=== PATIENT | male | born 1990 | race Caucasian/White ===

== ENCOUNTER 2016-05-25 18:57 | Inpatient (IN) | payer BC, OTHER ==
[2016-05-25] MEDS ORDERED: SODIUM CHLORIDE 0.9% 1,000 ML IV ONE (21:16)
[2016-05-25] MEDS ORDERED: HYDROmorphone 1 MG/ML 1 ML SYRINGE IVP STA ×2 (21:16→22:13)
[2016-05-25] MEDS ORDERED: IBUPROFEN 400 MG TAB PO STA (21:18)
--- NOTE | 2016-05-25 21:22 | ED ---
General Adult HPI - General Source: patient, RN notes reviewed Mode of arrival: ambulatory Limitations: no limitations <Adri Lai - Last Filed: 05/26/16 04:24> <Jr Reed - Last Filed: 06/06/16 08:43> - General Chief complaint: Abdominal Pain Stated complaint: LR ABDOMINAL PAIN, JUST ABOVE GROIN Time Seen by Provider: 05/25/16 21:01 - History of Present Illness Initial comments: This is a 26-year-old male who presents with right lower quadrant pain since Monday. Patient states this pain started right after he ate a burrito for lunch. Patient denies any fever/chills, nausea/vomiting/diarrhea. Patient denies any hematuria, hematochezia, or constipation. Patient has been taking a daily ibuprofen for pain but this has not helped. Patient states the abdominal pain is constant. Patient denies any dysuria. Patient denies any past surgeries. Patient states the pain does not radiate anywhere. Patient denies any recent shortness breath, chest pain, back pain, numbness, tingling, hematuria, headache, or visual changes, or any other complaints. (Adri Lai) - Related Data Previous Rx's Medication Instructions Recorded HYDROcodone/APAP 5-325MG [[place] 1 - 2 tab PO Q4H PRN #30 tab 05/26/16 5-325] Allergies Allergy/AdvReac Type Severity Reaction Status Date / Time No Known Allergies Allergy Verified 05/25/16 21:02 Review of Systems ROS Other: All systems not noted in ROS Statement are negative. <Adri Lai - Last Filed: 05/26/16 04:24> ROS Other: All systems not noted in ROS Statement are negative. <Jr Reed - Last Filed: 06/06/16 08:43> ROS Statement: Those systems with pertinent positive or pertinent negative responses have been documented in the HPI. Past Medical History Additional Past Medical History / Comment(s): chronic shoulder pain History of Any Multi-Drug Resistant Organisms: None Reported Past Surgical History: No Surgical Hx Reported Past Psychological History: No Psychological Hx Reported Smoking Status: Current every day smoker Past Alcohol Use History: None Reported Past Drug Use History: None Reported - Past Family History Father Family Medical History: Hypertension Mother Family Medical History: Hypertension Additional Family Medical History / Comment(s): Hernia <Adri Lai - Last Filed: 05/26/16 04:24> General Exam Limitations: no limitations <Adri Lai - Last Filed: 05/26/16 04:24> <Jr Reed - Last Filed: 06/06/16 08:43> - General Exam Comments Initial Comments: General: The patient is awake and alert, in no distress, and does not appear acutely ill. Eye: Pupils are equal, round and reactive to light, extra-ocular movements are intact. No nystagmus. There is normal conjunctiva bilaterally. No signs of icterus. Ears: TMs pink and pearly with intact cone of light bilaterally. Normal external ear canals Nose: Nasal turbinates pink and moist Mouth and throat: There are moist mucous membranes and no oral lesions. Neck: The neck is supple, there is no tenderness or JVD. Cardiovascular: There is a regular rate and rhythm. No murmur, rub or gallop is appreciated. Respiratory: Lungs are clear to auscultation, respirations are non-labored, breath sounds are equal. No wheezes, stridor, rales, or rhonchi. Gastrointestinal: There is tenderness to palpation of the right lower quadrant with voluntary guarding present. Soft, non-distended abdomen without masses or organomegaly noted. There is no rebound or involuntary guarding present. Negative Rovsing's. No CVA tenderness. Bowel sounds are unremarkable. Musculoskeletal: Normal ROM, no tenderness. Strength 5/5. Sensation intact. Radial pulses equal bilaterally 2+. Neurological: A&O x 3. CN II-XII intact, There are no obvious motor or sensory deficits. Coordination appears grossly intact. Speech is normal. Skin: Skin is warm and dry and no rashes or lesions are noted. Psychiatric: Cooperative, appropriate mood & affect, normal judgment. (Adri Lai) Medical Decision Making - Lab Data Result diagrams: 05/25/16 21:35 05/25/16 21:35 <Adri aLi - Last Filed: 05/26/16 04:24> - Lab Data Result diagrams: 05/27/16 07:14 05/27/16 07:14 <Jr Reed - Last Filed: 06/06/16 08:43> - Medical Decision Making This is a 18-year-old male presents to right lower quadrant pain since Monday. On physical exam patient has a fever in the EC. There is tenderness to palpation of the right lower quadrant with voluntary guarding present. Soft, non-distended abdomen without masses or organomegaly noted. There is no rebound or involuntary guarding present. Negative Rovsing's. No CVA tenderness. Bowel sounds are unremarkable. Basic labs were drawn. Patient was given Dilaudid in the EC. A CT of the abdomen was done with contrast and reviewed showing: There are inflammatory changes at the tip of the cecum consistent with acute appendicitis. No abscess seen. Thickened appendix. Splenomegaly. 2 cm low density lesion in the lateral right kidney is nonspecific. Ultrasound would be helpful for further evaluation this could relate to focal pyelonephritis. Report by Dr. Wright. I discussed the results with patient and attending physician Dr. Reed. At this time Dr. Chiu will be consulted regarding patient admission. Patient was started on IV Unasyn with an NPO diet and will be admitted as an inpatient. (Adri Lai) I saw this patient in conjunction with the physician nutrition services assistant. I performed independent history and physical exam. Agree with case management. (Jr Reed) - Lab Data Lab Results 05/25/16 05/25/16 05/25/16 Range/Units 21:35 21:35 21:35 WBC 9.5 (3.8-10.6) k/uL RBC 5.31 (4.30-5.90) m/uL Hgb 16.4 (13.0-17.5) gm/dL Hct 46.1 (39.0-53.0) % MCV 86.8 (80.0-100.0) fL MCH 31.0 (25.0-35.0) pg MCHC 35.7 (31.0-37.0) g/dL RDW 13.7 (11.5-15.5) % Plt Count 181 (150-450) k/uL Neutrophils % 70 % Lymphocytes % 18 % Monocytes % 5 % Eosinophils % 3 % Basophils % 1 % Neutrophils # 6.7 (1.3-7.7) k/uL Lymphocytes # 1.7 (1.0-4.8) k/uL Monocytes # 0.5 (0-1.0) k/uL Eosinophils # 0.3 (0-0.7) k/uL Basophils # 0.1 (0-0.2) k/uL Hyperchromasia Slight Poikilocytosis Slight PT (9.0-12.0) sec INR (<1.1) APTT (22.0-30.0) sec Sodium 139 (137-145) mmol/L Potassium 4.1 (3.5-5.1) mmol/L Chloride 103 (98-107) mmol/L Carbon Dioxide 28 (22-30) mmol/L Anion Gap 8 mmol/L BUN 15 (9-20) mg/dL Creatinine 1.07 (0.66-1.25) mg/dL Est GFR (MDRD) Af Amer >60 (>60 ml/min/1.73 sqM) Est GFR (MDRD) Non-Af >60 (>60 ml/min/1.73 sqM) Glucose 90 (74-99) mg/dL Plasma Lactic Acid Femi 0.7 (0.7-2.0) mmol/L Calcium 9.3 (8.4-10.2) mg/dL Total Bilirubin 1.3 (0.2-1.3) mg/dL AST 22 (17-59) U/L ALT 34 (21-72) U/L Alkaline Phosphatase 53 (38-126) U/L Total Protein 6.6 (6.3-8.2) g/dL Albumin 4.2 (3.5-5.0) g/dL Amylase 38 (30-110) U/L Lipase 24 (23-300) U/L Urine Color Urine Appearance (Clear) Urine pH (5.0-8.0) Ur Specific [place] (1.001-1.035) Urine Protein (Negative) Urine Glucose (UA) (Negative) Urine Ketones (Negative) Urine Blood (Negative) Urine Nitrate (Negative) Urine Bilirubin (Negative) Urine Urobilinogen (<2.0) mg/dL Ur Leukocyte Esterase (Negative) 05/25/16 05/25/16 Range/Units 21:35 23:00 WBC (3.8-10.6) k/uL RBC (4.30-5.90) m/uL Hgb (13.0-17.5) gm/dL Hct (39.0-53.0) % MCV (80.0-100.0) fL MCH (25.0-35.0) pg MCHC (31.0-37.0) g/dL RDW (11.5-15.5) % Plt Count (150-450) k/uL Neutrophils % % Lymphocytes % % Monocytes % % Eosinophils % % Basophils % % Neutrophils # (1.3-7.7) k/uL Lymphocytes # (1.0-4.8) k/uL Monocytes # (0-1.0) k/uL Eosinophils # (0-0.7) k/uL Basophils # (0-0.2) k/uL Hyperchromasia Poikilocytosis PT 10.4 (9.0-12.0) sec INR 1.0 (<1.1) APTT 26.1 (22.0-30.0) sec Sodium (137-145) mmol/L Potassium (3.5-5.1) mmol/L Chloride (98-107) mmol/L Carbon Dioxide (22-30) mmol/L Anion Gap mmol/L BUN (9-20) mg/dL Creatinine (0.66-1.25) mg/dL Est GFR (MDRD) Af Amer (>60 ml/min/1.73 sqM) Est GFR (MDRD) Non-Af (>60 ml/min/1.73 sqM) Glucose (74-99) mg/dL Plasma Lactic Acid Femi (0.7-2.0) mmol/L Calcium (8.4-10.2) mg/dL Total Bilirubin (0.2-1.3) mg/dL AST (17-59) U/L ALT (21-72) U/L Alkaline Phosphatase (38-126) U/L Total Protein (6.3-8.2) g/dL Albumin (3.5-5.0) g/dL Amylase (30-110) U/L Lipase (23-300) U/L Urine Color Yellow Urine Appearance Clear (Clear) Urine pH 6.5 (5.0-8.0) Ur Specific [place] >1.050 H (1.001-1.035) Urine Protein Trace H (Negative) Urine Glucose (UA) Negative (Negative) Urine Ketones Negative (Negative) Urine Blood Negative (Negative) Urine Nitrate Negative (Negative) Urine Bilirubin Negative (Negative) Urine Urobilinogen <2.0 (<2.0) mg/dL Ur Leukocyte Esterase Negative (Negative) Disposition Decision Time: 00:17 <Adri Lai - Last Filed: 05/26/16 04:24> <Jr Reed - Last Filed: 06/06/16 08:43> Clinical Impression: Appendicitis Disposition: ADMITTED IP TO THIS HOSP Condition: Good
[2016-05-25 21:56] LABS: Basophils # (A) 0.1 k/uL (0-0.2); Basophils % (A) 1 %; CH 31.9; Eosinophils # (A) 0.3 k/uL (0-0.7); Eosinophils % (A) 3 %; HCT 46.1 % (39.0-53.0); HDW 3.64; HGB 16.4 gm/dL (13.0-17.5); Hyperchromasia Slight; Luc # (Auto) 0.25; Luc % (Auto) 3; Lymphocytes # (A) 1.7 k/uL (1.0-4.8); Lymphocytes % (A) 18 %; MCHC 35.7 g/dL (31.0-37.0); MCV 86.8 fL (80.0-100.0); Monocytes # (A) 0.5 k/uL (0-1.0); Monocytes % (A) 5 %; Neutrophils # (A) 6.7 k/uL (1.3-7.7); Neutrophils % (A) 70 %; Poikilocytosis Slight; RBC 5.31 m/uL (4.30-5.90); RDW 13.7 % (11.5-15.5); WBC 9.5 k/uL (3.8-10.6); WBC (Perox) 10.17
[2016-05-25 22:02] LABS: Partial Thromboplastin Time 26.1 sec (22.0-30.0); Prothrombin Time 10.4 sec (9.0-12.0)
[2016-05-25 22:03] LABS: ALT 34 U/L (21-72); AST 22 U/L (17-59); Alkaline Phosphatase 53 U/L (38-126); Amylase 38 U/L (30-110); Anion Gap 8 mmol/L; Blood Urea Nitrogen 15 mg/dL (9-20); Calcium 9.3 mg/dL (8.4-10.2); Carbon Dioxide 28 mmol/L (22-30); Chloride 103 mmol/L (98-107); Glucose 90 mg/dL (74-99); Non-African American GFR(MDRD) >60 (>60 ml/min/1.73 sqM); Potassium 4.1 mmol/L (3.5-5.1); Sodium 139 mmol/L (137-145); Total Bilirubin 1.3 mg/dL (0.2-1.3); Total Protein 6.6 g/dL (6.3-8.2)
[2016-05-25] MEDS ORDERED: RX INFO: IV CONTRAST WAS GIVEN 1 EACH MISC MISCELLANE PRN (22:10)
--- NOTE | 2016-05-25 22:58 | CT ---
EXAMINATION TYPE: CT abdomen pelvis w con DATE OF EXAM: 05/25/2016 10:38 PM COMPARISON: NONE HISTORY: Right Lower Quadrant pain with fever CT DLP: 1591.8 mGycm Automated exposure control for dose reduction was used. TECHNIQUE: Helical acquisition of images was performed from the lung bases through the pelvis. CONTRAST: Performed without Oral Contrast and with IV Contrast, patient injected with 100 mL of Omnipaque 300. FINDINGS: Lung bases are clear. There is no pleural effusion. Heart size is normal. Liver appears normal. Bile ducts are not dilated. Gallbladder and pancreas appear normal. Spleen is e nlarged and measures 18 x 10 cm. There is no retroperitoneal adenopathy. There is no adrenal mass. Kidneys have normal size and contour. There is no hydronephrosis. There is a 2 cm low-density rounded area on the lateral right kidney. There is no ascites. There are inflammatory changes at the inferior aspect of the cecum. There is fat stranding. There prosper ears to be a thickened appendix that measures 1.3 cm. Bladder distends smoothly. There is no sign of a pelvic mass. IMPRESSION: THERE ARE INFLAMMATORY CHANGES AT THE TIP OF THE CECUM CONSISTENT WITH ACUTE APPENDICITIS. NO ABSCESS SEEN. THICKENED APPENDIX. SPLENOMEGALY. 2 CM ROUNDED LOW-DENSITY LESION IN THE LATERAL RIGHT KIDNEY IS NONSPECIFIC. ULTRASOUND WOULD BE HELPF UL FOR FURTHER EVALUATION. THIS COULD RELATE TO FOCAL PYELONEPHRITIS
[2016-05-25] MEDS ORDERED: AMPICILLIN-SULBACTAM 1.5 GM in SODIUM CHLORIDE 0.9% 50 ML IVPB STA (23:25)
[2016-05-25 23:55] LABS: Appearance,Urine Clear (Clear); Bilirubin,Urine Negative (Negative); Glucose,Urine (UA) Negative (Negative); Ketones,Urine Negative (Negative); Leukocyte Esterase,Urine Negative (Negative); Nitrite,Urine Negative (Negative); PH, Urine 6.5 (5.0-8.0); Protein,Urine Trace (Negative); UA Billing (MACRO vs. MICRO) CHEM; Urobilinogen,Urine <2.0 mg/dL (<2.0)
[2016-05-26] MEDS ORDERED: IBUPROFEN 400 MG TAB PO PRN (00:12)
[2016-05-26] MEDS ORDERED: ONDANSETRON 4 MG/2 ML VIAL IVP PRN (00:12)
[2016-05-26] MEDS ORDERED: NALOXONE 0.4 MG/ML 1 ML VIAL IV PRN ×2 (00:12→10:37)
[2016-05-26] MEDS ORDERED: ACETAMINOPHEN TAB 325 MG TAB PO PRN (00:12)
[2016-05-26 00:52] LABS: Specific Gravity,Urine >1.050 (1.001-1.035)
[2016-05-26 01:00] VITALS: BMI 33.3
[2016-05-26] MEDS: HYDROcodone/APAP 5-325MG 1 EACH TAB PO PRN ×4 (01:09→19:55)
[2016-05-26] MEDS ORDERED: AMPICILLIN-SULBACTAM 1.5 GM in SODIUM CHLORIDE 0.9% 50 ML IVPB SCH ×2 (06:00→12:00)
--- NOTE | 2016-05-26 08:42 | P.GSHP ---
History of Present Illness H&P Date: 05/26/16 Chief Complaint: abdominal pain The patient presented to the emergency department with pain. It and starting Monday get progressively worse. He came into the emergency department and showed evidence of appendicitis. - Review of Systems All systems: negative Past Medical History Additional Past Medical History / Comment(s): chronic shoulder pain History of Any Multi-Drug Resistant Organisms: None Reported Past Surgical History: No Surgical Hx Reported Past Psychological History: No Psychological Hx Reported Smoking Status: Current every day smoker Past Alcohol Use History: None Reported Past Drug Use History: None Reported - Past Family History Father Family Medical History: Hypertension Mother Family Medical History: Hypertension Additional Family Medical History / Comment(s): Hernia Medications and Allergies Home Medications Medication Instructions Recorded Confirmed Type No Known Home Medications [No 05/25/16 05/25/16 History Known Home Medications] Allergies Allergy/AdvReac Type Severity Reaction Status Date / Time No Known Allergies Allergy Verified 05/25/16 21:02 Surgical - Exam Osteopathic Statement: *. No significant issues noted on an osteopathic structural exam other than those noted in the History and Physical/Consult. Vital Signs Temp Pulse Resp BP Pulse Ox 98.2 F 86 16 125/82 100 05/25/16 19:31 05/25/16 19:31 05/25/16 19:31 05/25/16 19:31 05/25/16 19:31 - General well developed, well nourished, no distress - Eyes normal ocular movement - ENT no hearing loss, no congestion - Neck trachea midline - Respiratory normal respiratory effort - Abdomen Abdomen: tender (Right lower quadrant) Results - Labs 05/25/16 21:35 05/25/16 21:35 - Imaging CT scan - abdomen: report reviewed, image reviewed Assessment and Plan (1) Appendicitis Status: Acute Plan: Plan is laparoscopic appendectomy possible open. The procedure risk and complications were discussed. Questions were encouraged and answered. I'll do that for him today. Usual postop course was discussed.
[2016-05-26] MEDS ORDERED: IV FLUID CONTINUATION 900 ML IV ONE (09:00)
[2016-05-26] MEDS ORDERED: PROPOFOL 10 MG/ML 20 ML VIAL IV ONE (09:37)
[2016-05-26] MEDS ORDERED: MIDAZOLAM 2 MG/2 ML VIAL ONE (09:37)
[2016-05-26] MEDS ORDERED: NEOSTIGMINE 1 MG/ML 10 ML VIAL ONE (09:37)
[2016-05-26] MEDS ORDERED: GLYCOPYRROLATE 0.2 MG/ML 2 ML VIAL ONE (09:37)
[2016-05-26] MEDS ORDERED: VECURONIUM 10 MG VIAL IV ONE (09:37)
[2016-05-26] MEDS ORDERED: LIDOCAINE 1% INJ 10MG/ML (20 ML MDV) ONE (09:37)
[2016-05-26] MEDS ORDERED: SUCCINYLCHOLINE CHLORIDE VIAL 200 MG/10 ML VIAL IV ONE (09:37)
[2016-05-26] MEDS ORDERED: HYDROmorphone (PF) 1 MG/ML ONE (09:37)
[2016-05-26] MEDS ORDERED: fentaNYL (PF) 50 MCG/ML 2 ML AMP ONE (09:37)
[2016-05-26] MEDS: ERTAPENEM 1 GM in SODIUM CHLORIDE 0.9% 50 ML IVPB SCH (09:45)
[2016-05-26] MEDS ORDERED: BUPIVACAIN-EPI 0.25%-1:200,000 30 ML VIAL SQ ONE ×2 (10:02)
--- NOTE | 2016-05-26 10:37 | P.OP ---
Date of Procedure: 05/26/16 Preoperative Diagnosis: Appendicitis Postoperative Diagnosis: Appendicitis Procedure(s) Performed: Laparoscopic appendectomy Anesthesia: REN Surgeon: Liz Chiu Estimated Blood Loss (ml): 5 Pathology: other (Appendix) Condition: stable Disposition: PACU Indications for Procedure: Patient presented with abdominal pain. Workup showed acute appendicitis Operative Findings: The patient's taken the operative suite where as prepped and draped in the usual sterile manner under general endotracheal anesthetic. An infraumbilical incision was made. A varies needle was placed in the abdominal cavity and hanging drop test was performed. Pneumoperitoneum was started however the pressures were high. Elmo withdrawn and attempted to be repositioned. It still showed a good pain drop test but wasn't insufflating appropriately. Therefore the various was removed. A small fascial incision was made. The peritoneum was grasped and incised. A finger sweep was carried out. The trocar was then inserted and pneumoperitoneum was established with CO2 gas. There is evidence of some pre-peritoneal emphysema but no evidence of any bleeding or injury to the underlying bowel. Sites are chosen for accessory trochars needs are placed through small skin incisions. The abdominal pelvic contents were examined. The appendix was grasped and retracted medially. It was dissected off the sidewall. The mesoappendix was then taken down with harmonic scissors to the base. The appendix was then ligated with 0 PDS Endoloops 2. The appendix was then transected and placed into a specimen retrieval bag. The appendiceal stump and mesentery were examined and noted to be hemostatic. The trochars are removed. The pneumoperitoneum had been released. The specimen retrieval bag was removed. The fascia at the umbilicus was closed with 0 Vicryl. The skin was closed with 4-0 Vicryl subcuticular manner. Steri-Strips and dressings were applied. The procedure without difficulty and was taken recovery room in satisfactory condition. According to or personnel all counts are correct.
[2016-05-27] MEDS: HYDROcodone/APAP 5-325MG 1 EACH TAB PO PRN ×2 (02:12→06:24)
[2016-05-27 03:16] VITALS: RESP 16
[2016-05-27 07:06] VITALS: BP 120/72; PULSE 59; TEMP 98.3
[2016-05-27 07:55] LABS: Basophils # (A) 0.2 k/uL (0-0.2); Basophils % (A) 2 %; CH 31.5; Eosinophils # (A) 0.3 k/uL (0-0.7); Eosinophils % (A) 3 %; HCT 41.2 % (39.0-53.0); HDW 3.71; HGB 14.4 gm/dL (13.0-17.5); Hyperchromasia Slight; Luc # (Auto) 0.24; Luc % (Auto) 3; Lymphocytes # (A) 1.5 k/uL (1.0-4.8); Lymphocytes % (A) 20 %; MCH 30.8 pg (25.0-35.0); MCHC 34.9 g/dL (31.0-37.0); MCV 88.2 fL (80.0-100.0); Mean Platelet Volume 9.1; Monocytes # (A) 0.4 k/uL (0-1.0); Monocytes % (A) 5 %; Neutrophils # (A) 5.3 k/uL (1.3-7.7); Neutrophils % (A) 67 %; Poikilocytosis Slight; RBC 4.67 m/uL (4.30-5.90); RDW 13.9 % (11.5-15.5); WBC 7.8 k/uL (3.8-10.6); WBC (Perox) 7.81
[2016-05-27] MEDS: ERTAPENEM 1 GM in SODIUM CHLORIDE 0.9% 50 ML IVPB SCH (08:06)
[2016-05-27 08:14] LABS: ALT 27 U/L (21-72); AST 16 U/L (17-59); Alkaline Phosphatase 48 U/L (38-126); Anion Gap 10 mmol/L; Blood Urea Nitrogen 11 mg/dL (9-20); Calcium 8.9 mg/dL (8.4-10.2); Carbon Dioxide 27 mmol/L (22-30); Chloride 104 mmol/L (98-107); Glucose 118 mg/dL (74-99); Non-African American GFR(MDRD) >60 (>60 ml/min/1.73 sqM); Potassium 4.1 mmol/L (3.5-5.1); Sodium 141 mmol/L (137-145); Total Bilirubin 1.1 mg/dL (0.2-1.3); Total Protein 5.7 g/dL (6.3-8.2)
--- NOTE | 2016-06-10 12:26 | P.DS ---
Providers Date of admission: 05/25/16 23:08 Expected date of discharge: 05/27/16 Attending physician: Liz Chiu Primary care physician: Stated None - Discharge Diagnosis(es) (1) Appendicitis Status: Acute Hospital Course: The patient presented to ED with abdominal pain. Workup showed appendicitis. He was taken to the OR where he underwent a laparoscopic appendectomy. POD 1 his pain was controlled, he was tolerating a diet and he was felt to be stable to discharge. Pertinent Studies: CT scan Procedures: laparoscopic appendectomy Patient Condition at Discharge: Good Plan - Discharge Summary New Discharge Prescriptions: HYDROcodone/APAP 5-325MG [[place] 5-325] 1 - 2 tab PO Q4H PRN #30 tab PRN Reason: Pain Discharge Medication List HYDROcodone/APAP 5-325MG [[place] 5-325] 1 - 2 tab PO Q4H PRN #30 tab 05/26/16 [Rx ] Follow up Appointment(s)/Referral(s): Liz Chiu DO [Doctor of Osteopathic Medicine] - 06/09/16 10:50 am () Activity/Diet/Wound Care/Special Instructions: The dressings may be removed and you may shower after 48 hours. No tub baths for 1 week. Expect some bruising in the incisions. Use ice at the incisions for 24-48 hours. Rest over the weekend. [place] diet as tolerated for the next 1 -2 days. Call if you develop fever over 101, chills, nausea, vomiting, increased redness, swelling, discharge at puncture sites, or other concerns. No driving until Monday 3-. Call the office with any questions, concerns or issues. Discharge Disposition: HOME SELF-CARE
== END 2016-05-27 10:45 | disposition home or self-care (01) | DRG 343 ==
LOC: EC 18:57 → 3SUR 23:08
PROVIDERS: ADMIT Surgery; ATTEND Surgery
PROC: 0DTJ4ZZ Resection of Appendix, Percutaneous Endoscopic Approach (ICD-10-PCS; principal; 2016-05-26 10:00)
DX: K35.80 Unspecified acute appendicitis (principal); R16.1 Splenomegaly, not elsewhere classified; F17.200 Nicotine dependence, unspecified, uncomplicated; R93.421 Abnormal radiologic findings on diagnostic imaging of right kidney; G89.29 Other chronic pain; M25.519 Pain in unspecified shoulder; Z82.49 Family history of ischemic heart disease and other diseases of the circulatory system
CPT/HCPCS: 36415; 74177; 80053; 81003; 82150; 83605; 83690; 85025; 85610; 85730; 87040; 87086; 88304; 96361; 96365; 96376; 99285

== ENCOUNTER 2019-12-08 02:48 | Emergency (ER) | payer BC, OTHER ==
[2019-12-08 03:13] VITALS: TEMP 98
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
[2019-12-08] MEDS ORDERED: LIDOCAINE 1%-EPI 1:100,000 20 ML VIAL SQ ONE (04:42)
[2019-12-08 05:08] VITALS: BP 126/88; PULSE 98; RESP 18
== END 2019-12-08 04:38 | disposition home or self-care (01) ==
LOC: EC 02:48
DX: S01.112A Laceration without foreign body of left eyelid and periocular area, initial encounter (principal); Z87.891 Personal history of nicotine dependence; Y04.2XXA Assault by strike against or bumped into by another person, initial encounter; Y92.511 Restaurant or cafe as the place of occurrence of the external cause
CPT/HCPCS: 12011; 70450; 70486; 99284